=== PATIENT | male | born 2000 | race Caucasian/White ===

== ENCOUNTER 2019-03-26 17:43 | Emergency (ER) | payer OTHER ==
[2019-03-26 19:44] LABS: Urine Appearance Clear; Urine Bilirubin Negative (Negative); Urine Blood Negative (Negative); Urine Color Yellow; Urine Glucose Negative (Negative); Urine Ketones Trace (Negative); Urine Nitrite Negative (Negative); Urine Protein Negative (Negative); Urine Urobilinogen Negative (Negative)
[2019-03-26 19:51] LABS: ABS Basophils 0.1 10^3/ul (0-0.2); ABS Monocytes 0.6 10^3/ul (0-0.8); ABS Neutrophils 7.1 10^3/ul (1.5-7.7); Eosinophil % 0.2 %; Hematocrit 43 % (42-52); Hemoglobin 15.1 g/dL (14.0-18.0); Lymphocyte % 20.4 %; Mean Corpuscular HGB Conc 35 g/dL (31-36); Mean Corpuscular Hemoglobin 31 pg (27-31); Mean Corpuscular Volume 88 fL (80-94); Mean Platelet Volume 6.6 fL (7.4-10.4); Nucleated Red Blood Cells % 0.1; Platelet Count 175 10^3/uL (150-450); Red Blood Count 4.88 10^6 /uL (4.18-5.48); Red Cell Distribution Width 14 % (10-15); White Blood Count 9.7 10^3/uL (3.5-10.8)
[2019-03-26 20:12] LABS: ALT 12 U/L (7-52); AST 10 U/L (13-39); Albumin 4.6 g/dL (3.2-5.2); Albumin/Globulin Ratio 1.8 (1-3); Alkaline Phosphatase 54 U/L (34-104); Anion Gap 7 mmol/L (2-11); BUN/Creatinine Ratio 14.6 (8-20); Blood Urea Nitrogen 12 mg/dL (6-24); CO2 Carbon Dioxide 28 mmol/L (22-32); Calcium 9.8 mg/dL (8.6-10.3); Chloride 103 mmol/L (101-111); EGFR African American 144.9 (>60); EGFR Non-African American 119.8 (>60); Globulin 2.6 g/dL (2-4); Glucose 88 mg/dL (70-100); Potassium 4.1 mmol/L (3.5-5.0); Sodium 138 mmol/L (135-145); Total Protein 7.2 g/dL (6.4-8.9)
[2019-03-26 20:25] LABS: Acetaminophen < 15 mcg/mL; Alcohol < 10 mg/dL (<10); Salicylate < 2.50 mg/dL (<30)
[2019-03-26 20:26] LABS: Urine Benzodiazepine Screen None Detected (None Detect); Urine Opiates Screen None Detected (None Detect)
--- NOTE | 2019-03-26 20:32 | ED ---
Psychiatric Complaint - HPI Summary HPI Summary: Patient is a 18 y/o M presenting to the ED via police on a 941 for a psychiatric complaint. Patient states he has been removed from the [facility] campus where he is a student several times due to marijuana possession. He notes having SI from recent stress with school. Patient admits two suicide attempts in the past, one by hanging himself with a shirt and another in the bathtub. Patient denies any HI, fever, headache, or myalgia. PMHx is significant for anxiety and depression. He previously took medications for this history, but stopped taking them because he did not believe they were alleviating his symptoms. He admits weekly marijuana use and occasional alcohol use, but denies tobacco use. A penicillin allergy is noted. - History Of Current Complaint Chief Complaint: EDSuicidal Time Seen by Provider: 03/26/19 19:08 Hx Obtained From: Patient Onset/Duration: Sudden Onset, Still Present Timing: Constant Severity Initially: Moderate Severity Currently: Moderate Character: Depressed Aggravating Factor(s): Recent Stress Alleviating Factor(s): Nothing Associated Signs And Symptoms: Positive: Negative Related History: Positive For: Prior Psychiatric Issues Has Suicidal: Reports: Thoughts, Has Prior Attempt(s) Has Homicidal: Denies: Thoughts - Allergies/Home Medications Allergies/Adverse Reactions: Allergies Allergy/AdvReac Type Severity Reaction Status Date / Time Penicillins Allergy Rash Verified 03/26/19 17:50 Home Medications: Home Medications NK [No Home Medications Reported] 03/26/19 [History Confirmed 03/26/19] PMH/Surg Hx/FS Hx/Imm Hx Previously Healthy: Yes Endocrine/Hematology History: Denies: Hx Diabetes Cardiovascular History: Denies: Hx Hypercholesterolemia, Hx Hypertension Sensory History: Denies: Hx Legally Blind, Hx Deafness Opthamlomology History: Denies: Hx Legally Blind EENT History: Denies: Hx Deafness Psychiatric History: Reports: Hx Anxiety, Hx Depression - Surgical History Surgical History: None Surgery Procedure, Year, and Place: None Infectious Disease History: No Infectious Disease History: Denies: Traveled Outside the [place] in Last 30 Days - Family History Known Family History: Negative: Cardiac Disease, Diabetes - Social History Occupation: Student Lives: Alone Alcohol Use: Occasionally Hx Substance Use: Yes Substance Use Type: Reports: Marijuana Substance Use Comment - Amount & Last Used: 3x week Hx Tobacco Use: No Smoking Status (MU): Never Smoked Tobacco Review of Systems Negative: Fever Negative: Myalgia Negative: Headache Psychological: Other - Positive SI; negative HI Positive: Depressed All Other Systems Reviewed And Are Negative: Yes Physical Exam - Summary Physical Exam Summary: VITAL SIGNS: Reviewed. GENERAL: Patient is a well-developed and nourished MALE who is lying comfortable in the stretcher. Patient is not in any acute respiratory distress. HEAD AND FACE: No signs of trauma. No ecchymosis, hematomas or skull depressions. No sinus tenderness. EYES: PERRLA, EOMI x 2, No injected conjunctiva, no nystagmus. EARS: Hearing grossly intact. Ear canals and tympanic membranes are within normal limits. MOUTH: Oropharynx within normal limits. NECK: Supple, trachea is midline, no adenopathy, no JVD, no carotid bruit, no c- spine tenderness, neck with full ROM. CHEST: Symmetric, no tenderness at palpation. LUNGS: Clear to auscultation bilaterally. No wheezing or crackles. CVS: Regular rate and rhythm, S1 and S2 present, no murmurs or gallops appreciated. ABDOMEN: Soft, non-tender. No signs of distention. No rebound, no guarding, and no masses palpated. Bowel sounds are normal. EXTREMITIES: FROM in all major joints, no edema, no cyanosis or clubbing. NEURO: Alert and oriented x 3. No acute neurological deficits. Speech is normal and follows commands. SKIN: Dry and warm. PSYCH: Depressed, quiet, and admits suicidal thoughts, but denies a plan. No homicidal thoughts or plan. No signs of psychosis or pressure speech. No tangential speech. Triage Information Reviewed: Yes Vital Signs On Initial Exam: Initial Vitals Temp Pulse Resp BP Pulse Ox 97.8 F 65 18 135/70 99 03/26/19 17:45 03/26/19 17:45 03/26/19 17:45 03/26/19 17:45 03/26/19 17:45 Vital Signs Reviewed: Yes Procedures - Sedation Patient Received Moderate/Deep Sedation with Procedure: No Diagnostics - Vital Signs Vital Signs Temp Pulse Resp BP Pulse Ox 03/26/19 17:45 97.8 F 65 18 135/70 99 - Laboratory Lab Results: Lab Results 03/26/19 03/26/19 03/26/19 Range/Units 18:44 18:44 19:44 WBC 9.7 (3.5-10.8) 10^3/uL RBC 4.88 (4.18-5.48) 10^6 /uL Hgb 15.1 (14.0-18.0) g/dL Hct 43 (42-52) % MCV 88 (80-94) fL MCH 31 (27-31) pg MCHC 35 (31-36) g/dL RDW 14 (10-15) % Plt Count 175 (150-450) 10^3/uL MPV 6.6 L (7.4-10.4) fL Neut % (Auto) 73.1 % Lymph % (Auto) 20.4 % [place] % (Auto) 5.7 % Eos % (Auto) 0.2 % Baso % (Auto) 0.6 % Absolute Neuts (auto) 7.1 (1.5-7.7) 10^3/ul Absolute Lymphs (auto) 2.0 (1.0-4.8) 10^3/ul Absolute Monos (auto) 0.6 (0-0.8) 10^3/ul Absolute Eos (auto) 0.0 (0-0.6) 10^3/ul Absolute Basos (auto) 0.1 (0-0.2) 10^3/ul Absolute Nucleated RBC 0.0 10^3/ul Nucleated RBC % 0.1 Sodium (135-145) mmol/L Potassium (3.5-5.0) mmol/L Chloride (101-111) mmol/L Carbon Dioxide (22-32) mmol/L Anion Gap (2-11) mmol/L BUN (6-24) mg/dL Creatinine (0.67-1.17) mg/dL Est GFR ( Amer) (>60) Est GFR (Non-Af Amer) (>60) BUN/Creatinine Ratio (8-20) Glucose (70-100) mg/dL Calcium (8.6-10.3) mg/dL Total Bilirubin (0.2-1.0) mg/dL AST (13-39) U/L ALT (7-52) U/L Alkaline Phosphatase (34-104) U/L Total Protein (6.4-8.9) g/dL Albumin (3.2-5.2) g/dL Globulin (2-4) g/dL Albumin/Globulin Ratio (1-3) TSH Urine Color Yellow Urine Appearance Clear Urine pH 5.0 (5-9) Ur Specific Garita 1.020 (1.010-1.030) Urine Protein Negative (Negative) Urine Ketones Trace A (Negative) Urine Blood Negative (Negative) Urine Nitrate Negative (Negative) Urine Bilirubin Negative (Negative) Urine Urobilinogen Negative (Negative) Ur Leukocyte Esterase Negative (Negative) Urine Glucose Negative (Negative) Salicylates (<30) mg/dL Urine Opiates Screen None detected (None Detect) Acetaminophen mcg/mL Ur Barbiturates Screen None detected (None Detect) Ur Phencyclidine Scrn None detected (None Detect) Ur Amphetamines Screen None detected (None Detect) U Benzodiazepines Scrn None detected (None Detect) Urine Cocaine Screen None detected (None Detect) U Cannabinoids Screen Presumptive positive A (None Detect) Serum Alcohol (<10) mg/dL 03/26/19 Range/Units 19:44 WBC (3.5-10.8) 10^3/uL RBC (4.18-5.48) 10^6 /uL Hgb (14.0-18.0) g/dL Hct (42-52) % MCV (80-94) fL MCH (27-31) pg MCHC (31-36) g/dL RDW (10-15) % Plt Count (150-450) 10^3/uL MPV (7.4-10.4) fL Neut % (Auto) % Lymph % (Auto) % [place] % (Auto) % Eos % (Auto) % Baso % (Auto) % Absolute Neuts (auto) (1.5-7.7) 10^3/ul Absolute Lymphs (auto) (1.0-4.8) 10^3/ul Absolute Monos (auto) (0-0.8) 10^3/ul Absolute Eos (auto) (0-0.6) 10^3/ul Absolute Basos (auto) (0-0.2) 10^3/ul Absolute Nucleated RBC 10^3/ul Nucleated RBC % Sodium 138 (135-145) mmol/L Potassium 4.1 (3.5-5.0) mmol/L Chloride 103 (101-111) mmol/L Carbon Dioxide 28 (22-32) mmol/L Anion Gap 7 (2-11) mmol/L BUN 12 (6-24) mg/dL Creatinine 0.82 (0.67-1.17) mg/dL Est GFR ( Amer) 144.9 (>60) Est GFR (Non-Af Amer) 119.8 (>60) BUN/Creatinine Ratio 14.6 (8-20) Glucose 88 (70-100) mg/dL Calcium 9.8 (8.6-10.3) mg/dL Total Bilirubin 0.70 (0.2-1.0) mg/dL AST 10 L (13-39) U/L ALT 12 (7-52) U/L Alkaline Phosphatase 54 (34-104) U/L Total Protein 7.2 (6.4-8.9) g/dL Albumin 4.6 (3.2-5.2) g/dL Globulin 2.6 (2-4) g/dL Albumin/Globulin Ratio 1.8 (1-3) TSH Pending Urine Color Urine Appearance Urine pH (5-9) Ur Specific Garita (1.010-1.030) Urine Protein (Negative) Urine Ketones (Negative) Urine Blood (Negative) Urine Nitrate (Negative) Urine Bilirubin (Negative) Urine Urobilinogen (Negative) Ur Leukocyte Esterase (Negative) Urine Glucose (Negative) Salicylates < 2.50 (<30) mg/dL Urine Opiates Screen (None Detect) Acetaminophen < 15 mcg/mL Ur Barbiturates Screen (None Detect) Ur Phencyclidine Scrn (None Detect) Ur Amphetamines Screen (None Detect) U Benzodiazepines Scrn (None Detect) Urine Cocaine Screen (None Detect) U Cannabinoids Screen (None Detect) Serum Alcohol < 10 (<10) mg/dL Result Diagrams: 03/26/19 19:44 03/26/19 19:44 Lab Statement: Any lab studies that have been ordered have been reviewed, and results considered in the medical decision making process. Re-Evaluation - Re-Evaluation First Eval Re-Evaluation Time: 19:45 Change: Unchanged Comment: At 19:45, patient is medically cleared for a mental health evaluation. Second Eval Re-Evaluation Time: 21:41 Change: Unchanged Comment: At 21:41, patient was moved to the annex. Course/Dx - Course Assessment/Plan: Patient is a 18 y/o M presenting to the ED via police on a 941 for a psychiatric complaint. Patient states he has been removed from the [facility] campus where he is a student several times due to marijuana possession. He notes having SI from recent stress with school. Patient admits two suicide attempts in the past, one by hanging himself with a shirt and another in the bathtub. Patient denies any HI, fever, headache, or myalgia. PMHx is significant for anxiety and depression. He previously took medications for this history, but stopped taking them because he did not believe they were alleviating his symptoms. He admits weekly marijuana use and occasional alcohol use, but denies tobacco use. A penicillin allergy is noted. Bloodwork is w/o any significant abnormality. He is medically cleared. He is awaiting a MHE. Patient is hemodynamically stable and A+O x 3. Patient will be signed out at 22 :00 on 03/26/[address] Johny Ndiaye at shift change, pending mental health evaluation and disposition. - Differential Dx/Clinical Impression Differential Diagnosis/HQI/PQRI: Positive: Anxiety, Depression, Suicidal Ideation Provider Diagnosis: Depression Discharge ED - Sign-Out/Discharge Documenting (check all that apply): Sign-Out Patient Signing out patient TO: Johny Ndiaye - Patient is a sign-out at 22:00 on 03/[address] Sam Kirby MD to Dr. Johny Ndiaye MD at shift change, pending mental health evaluation and disposition. - Discharge Plan Condition: Stable Referrals: [facility] [Primary Care Provider] - - Billing Disposition and Condition Condition: STABLE - Attestation Statements Document Initiated by Lizyibe: Yes Documenting Scribe: Tiffany Pyle Provider For Whom Vince is Documenting (Include Credential): Sam Kirby MD Scribe Attestation: Tiffany Sam scribed for Sam Kirby MD on 03/27/19 at 0757. Scribe Documentation Reviewed: Yes Provider Attestation: The documentation as recorded by the Tiffany lazaro accurately reflects the service I personally performed and the decisions made by me, Sam Kirby MD Status of Scribe Document: Viewed
[2019-03-26 20:39] LABS: TSH (Thyroid Stimulating Horm) 1.22 mcIU/mL (0.34-5.60)
--- NOTE | 2019-03-26 23:12 | ED ---
Progress - Progress Note Progress Note: Patient is received as a sign out from Dr. Kirby to Dr. Ndiaye at 2200 03/26/19 shift end pending MHE of this mental health patient. 0000 - Mental health propellant charge loader states that the patient's case has been reviewed by Dr. Drummond and discussed with parents. Parents are concerned whether the patient will be safe if discharged. Patient will be a MH hold until morning pending psychiatrist evaluation. Re-Evaluation - Re-Evaluation First Eval Re-Evaluation Time: 19:45 Change: Unchanged Comment: At 19:45, patient is medically cleared for a mental health evaluation. Second Eval Re-Evaluation Time: 21:41 Change: Unchanged Comment: At 21:41, patient was moved to the annex. Course/Dx - Course Course Of Treatment: Patient is received as a sign out from Dr. Kirby to Dr. Ndiaye at 2200 03/26/19 shift end pending MHE of this mental health patient. 0000 - Mental health propellant charge loader states that the patient's case has been reviewed by Dr. Drummond and discussed with parents. Parents are concerned whether the patient will be safe if discharged. Patient will be a MH hold until morning pending psychiatrist evaluation. Patient is signed out to Dr. Kirby at 0700 shift change pending psychiatrist evaluation. - Diagnoses Provider Diagnoses: Substance use disorder - Provider Notifications Discussed Care Of Patient With: David Drummond Time Discussed With Above Provider: 00:00 Instructed by Provider To: Other - 0000 - Mental health propellant charge loader states that the patient's case has been reviewed by Dr. Drummond and discussed with parents. Parents are concerned whether the patient will be safe if discharged. Patient will be a MH hold until morning pending psychiatrist evaluation. Discharge ED - Sign-Out/Discharge Documenting (check all that apply): Sign-Out Patient, Receiving Sign-Out Signing out patient TO: Sam Kirby Receiving patient FROM: Sam Kirby - Discharge Plan Condition: Stable Disposition: HOME Patient Education Materials: Depression (ED) Referrals: [facility] [Primary Care Provider] - Additional Instructions: Per completion of a mental health evaluation, you are cleared for release and do not require inpatient psychiatric hospitalization at this time. Please go to nearest emergency room or call 911 if safety concerns arise or condition worsens. Important Phone Numbers: [facility] ph:[phone] Su[facility] Prevention [facility] Crisis Services ph:[phone] National Suicide Prevention Lifeline ph:[phone] (8362) [facility] ph:[phone] Alcoholics Anonymous ph:[phone] [facility] ph:[phone] [facility] ph:[phone] RECOMMENDATION: Upon arrival of father, Pt will be discharged with recommendation to follow up with [facility] or a therapist/ clinic arranged by family. If symptoms increase, return to emergency department. - Billing Disposition and Condition Condition: STABLE Disposition: Home - Attestation Statements Document Initiated by Vince: Yes Documenting Scribe: ALEXX LEWIS Provider For Whom Vince is Documenting (Include Credential): LUCIA NDIAYE MD Scribe Attestation: ALEXX Sam, scribed for LUCIA NDIAYE MD on 03/27/19 at 1913. Scribe Documentation Reviewed: Yes Provider Attestation: The documentation as recorded by the ALEXX lazaro accurately reflects the service I personally performed and the decisions made by me, LUCIA NDIAYE MD Status of Scribe Document: Viewed
--- NOTE | 2019-03-27 13:53 | ED ---
Progress - Progress Note Progress Note: Receiving sign-out at shift change 0700 pending MHE. MHE discharged the patient with a diagnosis of substance use disorder, per Dr. Drummond, Psychiatry. Re-Evaluation - Re-Evaluation First Eval Re-Evaluation Time: 19:45 Change: Unchanged Comment: At 19:45, patient is medically cleared for a mental health evaluation. Second Eval Re-Evaluation Time: 21:41 Change: Unchanged Comment: At 21:41, patient was moved to the annex. Course/Dx - Course Course Of Treatment: Patient is received as a sign out from Dr. Kirby to Dr. Ndiaye at 2200 03/26/19 shift end pending MHE of this mental health patient. 0000 - Mental health fast food services manager states that the patient's case has been reviewed by Dr. Drummond and discussed with parents. Parents are concerned whether the patient will be safe if discharged. Patient will be a MH hold until morning pending psychiatrist evaluation. Patient is signed out to Dr. Kirby at 0700 shift change pending psychiatrist evaluation. - Diagnoses Provider Diagnoses: Substance use disorder - Provider Notifications Time Discussed With Above Provider: 00:00 Instructed by Provider To: Other - 0000 - Mental health fast food services manager states that the patient's case has been reviewed by Dr. Drummond and discussed with parents. Parents are concerned whether the patient will be safe if discharged. Patient will be a MH hold until morning pending psychiatrist evaluation. Discharge ED - Sign-Out/Discharge Documenting (check all that apply): Patient Departure - Discharge, per MHE - Discharge Plan Condition: Stable Referrals: [facility] [Primary Care Provider] - - Attestation Statements Document Initiated by Scribe: Yes Documenting Scribe: Teto Buenrostro Provider For Whom Lizyibe is Documenting (Include Credential): Sam Kirby MD Scribe Attestation: Teto Sam, scribed for Sam Kirby MD on 03/27/19 at 1353. Status of Scribe Document: Ready
[2019-03-27 15:31] VITALS: BP 107/49
== END 2019-03-27 16:00 | disposition home or self-care (01) ==
LOC: ED 17:43
DX: F32.9 Major depressive disorder, single episode, unspecified (principal); Z88.0 Allergy status to penicillin
CPT/HCPCS: 36415; 80053; 80307; 80320; 80329; 81003; 84443; 85025; 99284; G0480